=== PATIENT | female | born 1990 | race African-American/Black ===

== ENCOUNTER 2021-06-21 13:37 | Emergency (ER) | payer OTHER ==
[~2021-06-21] VITALS: Ht 157.5 cm; Wt 98.0 kg
[~2021-06-21 13:37] MED LIST: AMOXICILLIN 50500 MG PO; AMOXICILLIN500 M1 PO; MACROBID 100 M100 M1 PO; NO HOME MEDS; NORCO 5-325 TA1 EACH PO; PHENERGAN 25 MG25 M1 PO; VENTOLIN HFA 1818 GM
[2021-06-21 14:05] LABS: ABSOLUTE NEUTROPHILS 5.5 thou/uL (1.4-8.2); BASOPHILS 1.1 % (0.0-2.0); EOSINOPHILS 1.5 % (0.0-3.0); HEMATOCRIT 38.4 % (37.0-47.0); HEMOGLOBIN 12.5 gm/dL (12.0-15.0); LYMPHOCYTES 36.4 % (24.0-44.0); MCH 27.5 pg (26.0-34.0); MCHC 32.4 g/dL (28.0-37.0); MCV 84.8 fL (80.0-100.0); MONOCYTES 3.9 % (1.0-8.0); PLATELET COUNT 303 thou/uL (150-400); POLYS 57.1 % (36.0-66.0); RBC 4.53 mil/uL (4.20-5.00); RDW 13.7 % (10.5-14.5); WBC 9.7 thou/uL (4.0-11.0)
[2021-06-21 14:13] LABS: CALCIUM 8.6 mg/dL (8.5-10.1); CREATININE 0.8 mg/dL (0.6-1.0); POTASSIUM 3.9 mmol/L (3.5-5.1)
[2021-06-21 14:19] LABS: ALBUMIN 3.6 g/dL (3.4-5.0); TOTAL BILIRUBIN 0.5 mg/dL (0.2-1.0); TOTAL PROTEIN 7.7 g/dL (6.4-8.2)
[2021-06-21 14:58] LABS: URINE BILIRUBIN NEGATIVE (Negative); URINE BLOOD TRACE (Negative); URINE CLARITY CLEAR; URINE COLOR YELLOW; URINE GLUCOSE-RANDOM* NEGATIVE (Negative); URINE KETONES NEGATIVE (Negative); URINE LEUKOCYTES-REFLEX TRACE (Negative); URINE NITRITE-REFLEX NEGATIVE (Negative); URINE PROTEIN (DIPSTICK) NEGATIVE (Negative); URINE SPECIFIC GRAVITY 1.025 (1.005-1.035)
[2021-06-21] MEDS ORDERED: MEDROLDOSEPACK PO (15:32)
[2021-06-21] MEDS ORDERED: MOBIC7.5 MG PO (15:32)
[2021-06-21 15:46] VITALS: BP 138/84
== END 2021-06-21 15:46 | disposition home or self-care (01) ==
LOC: ER 13:37
PROVIDERS: Nurse Practitioner
DX: R06.00 Dyspnea, unspecified (principal); R06.02 Shortness of breath; R10.31 Right lower quadrant pain; R10.32 Left lower quadrant pain; Z20.822 Contact with and (suspected) exposure to COVID-19